=== PATIENT | female | born 2000 | race American Indian/Alaskan Native ===

== ENCOUNTER 2021-04-21 19:23 | Emergency (ER) | payer SELFPAY ==
--- NOTE | 2021-04-21 21:51 | Emergency Department Report ---
ED ENT HPI - General Chief complaint: Dental/Oral Stated complaint: TONSILS Source: patient Mode of arrival: Ambulatory Limitations: No Limitations - History of Present Illness Initial comments: 21-year-old female complaining of sore throat x2 weeks. Patient denies any unknown past medical history. Patient states unvaccinated to COVID. She states taking mumv-aui-[id number] medicine medication with mild relief. Patient denies any fever ,chills , or chest pain. Patient denies any coughing. No trismus noted,no drooling noted. No acute distress noted. no ill appearance noted MD complaint: sore throat Onset/Timin -: week(s) Severity: moderate Severity scale (0 -10): 6 Quality: aching Consistency: intermittent Improves with: NSAID Worsens with: swallowing Associated Symptoms: sore throat. denies: fever, cough, gum swelling, pain with swallowing, tinnitus, discharge from ear, rhinorrhea - Related Data Previous Rx's Medication Instructions Recorded Last Taken Type Azithromycin 250 mg PO DAILY 5 Days #6 tab 04/21/21 Unknown Rx Ibuprofen [Motrin] 800 mg PO Q8HR PRN 15 Days #30 04/21/21 Unknown Rx tablet Allergies Allergy/AdvReac Type Severity Reaction Status Date / Time amoxicillin Allergy Rash Verified 04/21/21 21:15 ED Dental HPI - General Chief complaint: Dental/Oral Stated complaint: TONSILS Source: patient Mode of arrival: Ambulatory Limitations: No Limitations - Related Data Previous Rx's Medication Instructions Recorded Last Taken Type Azithromycin 250 mg PO DAILY 5 Days #6 tab 04/21/21 Unknown Rx Ibuprofen [Motrin] 800 mg PO Q8HR PRN 15 Days #30 04/21/21 Unknown Rx tablet Allergies Allergy/AdvReac Type Severity Reaction Status Date / Time amoxicillin Allergy Rash Verified 04/21/21 21:15 ED Review of Systems ROS: Stated complaint: TONSILS Other details as noted in HPI Constitutional: denies: chills, fever Eyes: denies: eye pain, eye discharge, vision change ENT: denies: ear pain, throat pain Respiratory: denies: cough, shortness of breath, wheezing Cardiovascular: denies: chest pain, palpitations Endocrine: no symptoms reported Gastrointestinal: denies: abdominal pain, nausea, diarrhea Genitourinary: denies: urgency, dysuria, discharge Musculoskeletal: denies: back pain, joint swelling, arthralgia Skin: denies: rash, lesions Neurological: denies: headache, weakness, paresthesias Psychiatric: denies: anxiety, depression Hematological/Lymphatic: denies: easy bleeding, easy bruising ED Past Medical Hx - Past Medical History Previous Medical History?: Yes Additional medical history: Morbid Obesity - Surgical History Past Surgical History?: No - Social History Smoking Status: Never Smoker Substance Use Type: None - Medications Home Medications: Home Medications Medication Instructions Recorded Confirmed Last Taken Type Azithromycin 250 mg PO DAILY 5 Days #6 tab 04/21/21 Unknown Rx Ibuprofen [Motrin] 800 mg PO Q8HR PRN 15 Days #30 04/21/21 Unknown Rx tablet ED Physical Exam - General Limitations: No Limitations General appearance: alert, in no apparent distress - Head Head exam: Present: atraumatic, normocephalic - Eye Eye exam: Present: normal appearance - ENT ENT exam: Present: normal orophraynx, mucous membranes moist - Expanded ENT Exam Expanded Mouth exam: Present: tongue normal. Absent: drooling, trismus, muffled voice Throat exam: Positive: normal inspection, tonsillar erythema, tonsillomegaly. Negative: tonsillar exudate, R peritonsillar mass, L peritonsillar mass - Neck Neck exam: Present: normal inspection - Respiratory Respiratory exam: Present: normal lung sounds bilaterally. Absent: respiratory distress - Cardiovascular Cardiovascular Exam: Present: regular rate, normal rhythm. Absent: systolic murmur, diastolic murmur, rubs, gallop - GI/Abdominal GI/Abdominal exam: Present: soft, normal bowel sounds - Extremities Exam Extremities exam: Present: normal inspection - Back Exam Back exam: Present: normal inspection - Neurological Exam Neurological exam: Present: alert, oriented X3 - Psychiatric Psychiatric exam: Present: normal affect, normal mood - Skin Skin exam: Present: warm, dry, intact, normal color. Absent: rash ED Course Vital Signs 04/21/21 04/21/21 21:08 23:42 Temperature 99.0 F 98.6 F Pulse Rate 75 87 Respiratory 18 18 Rate Blood Pressure 145/84 Blood Pressure 140/88 [Left] O2 Sat by Pulse 100 99 Oximetry ED Medical Decision Making - Medical Decision Making 21-year-old female complaining of sore throat x2 weeks. Patient denies any unknown past medical history. Patient states unvaccinated to COVID. She states taking mped-arj-csfsxof medicine medication with mild relief. Patient denies any fever ,chills , or chest pain. Patient denies any coughing. No trismus noted,no drooling noted ,uvula midline. No acute distress noted. no ill appearance noted. Patient refused rapid strep. Treatment for tonsillitis. Check patient to follow-up with ENT for recurrent strep throat. Discussed plan and instruction given. Patient verbalized understanding. I have spoken with the patient and/or caregiver. I have explained the patient condition, diagnosis and treatment plan based on information available to me at this time. I have answered the patient and/caregiver questions and addressed any concerns. The patient and/or caregiver have has good an understanding of the patient diagnosed condition and treatment plan as can be expected at this point. The vital signs have been stable. The patient condition is stable and appropriate for discharge from the emergency department. The patient and caregiver has been given detailed instruction in a written format and expressed understanding of discharge instruction. The patient/or caregiver are aware that any significant change in condition or worsening of symptoms should prompt an immediate return to the this or the closest emergency department or call to 911 - Differential Diagnosis Pharyngitis,acute tonsillitis ,streptococcal strep throat Critical care attestation.: If time is entered above; I have spent that time in minutes in the direct care of this critically ill patient, excluding procedure time. ED Disposition Clinical Impression: Tonsillitis Disposition: 01 HOME / SELF CARE / HOMELESS Is pt being admited?: No Does the pt Need Aspirin: No Condition: Stable Instructions: Tonsillitis, [id number] Additional Instructions: Take medication as prescribed Follow-up with primary care doctor as needed Return to the ED for worsening symptoms Prescriptions: Azithromycin 250 mg PO DAILY 5 Days #6 tab Ibuprofen [Motrin] 800 mg PO Q8HR PRN 15 Days #30 tablet PRN Reason: Pain, Moderate (4-6) Referrals: PRIMARY MD JUAN [Primary Care Provider] - 3-5 Days CANDICE ESQUIVEL MD [Staff Physician] - 3-5 Days
[2021-04-21 23:44] VITALS: BP 140/88
== END 2021-04-21 23:44 | disposition home or self-care (01) ==
LOC: ED 19:23
DX: J03.90 Acute tonsillitis, unspecified (principal); Z88.0 Allergy status to penicillin
CPT/HCPCS: 99282